=== PATIENT | male | born 1955 | race Caucasian/White ===

== ENCOUNTER 2017-03-27 16:15 | Emergency (ER) | payer OTHER ==
[2017-03-27 17:55] LABS: Urine Bacteria 1+ (Absent); Urine Bilirubin Negative (Negative); Urine Glucose Negative (Negative); Urine Nitrite Negative (Negative)
[2017-03-27 18:47] VITALS: BP 127/71
--- NOTE | 2017-03-28 11:52 | ED ---
Bryon Zuluaga Nikita, scribed for Jesse Bueno MD on 03/27/17 at 1837 . GI/ HPI - HPI Summary HPI Summary: Pt is a 62 y/o M who presents to ED c/o dysuria and urinary frequency and urgency. Sx began approximately 2 days ago with the associated pain when urinating being ranked 8/10. Sx aggravated and alleviated by nothing. Additionally c/o myalgias and fatigue secondary to waking up often due to urinary urgency. - History of Current Complaint Chief Complaint: EDUrogenitalProblems Time Seen by Provider: 03/27/17 18:31 Stated Complaint: POSS UTI Hx Obtained From: Patient Onset/Duration: Started Days Ago - 2 days, Still Present Current Severity: Severe Pain Intensity: 8 Pain Characteristics: Burning - When urinating Associated Signs and Symptoms: Positive: Dysuria Aggravating Factor(s): Nothing Alleviating Factor(s): Nothing - Allergy/Home Medications Allergies/Adverse Reactions: Allergies Allergy/AdvReac Type Severity Reaction Status Date / Time No Known Allergies Allergy Verified 03/27/17 16:30 PMH/Surg Hx/FS Hx/Imm Hx Previously Healthy: Yes Endocrine/Hematology History: Denies: Hx Diabetes Cardiovascular History: Denies: Hx Coronary Artery Disease, Hx Hypertension Infectious Disease History: Denies: Traveled Outside the [place] in Last 30 Days - Family History Known Family History: Negative: Cardiac Disease, Hypertension, Diabetes - Social History Lives: With Family Substance Use Type: Reports: None Smoking Status (MU): Never Smoked Tobacco Review of Systems Positive: Fatigue Positive: dysuria, frequency, urgency Positive: Myalgia All Other Systems Reviewed And Are Negative: Yes Physical Exam Triage Information Reviewed: Yes Vital Signs On Initial Exam: Initial Vitals Temp Pulse Resp BP Pulse Ox 98.6 F 73 16 132/79 97 03/27/17 16:31 03/27/17 16:31 03/27/17 16:31 03/27/17 16:31 03/27/17 16:31 Vital Signs Reviewed: Yes Appearance: Positive: Well-Appearing, No Pain Distress Skin: Positive: Warm, Skin Color Reflects Adequate Perfusion, Dry Head/Face: Positive: Normal Head/Face Inspection Eyes: Positive: Normal ENT: Positive: Normal ENT inspection Neck: Positive: Supple, Nontender Respiratory/Lung Sounds: Positive: Clear to Auscultation, Breath Sounds Present Cardiovascular: Positive: RRR Abdomen Description: Positive: Nontender, Soft Bowel Sounds: Positive: Present Musculoskeletal: Positive: Normal Neurological: Positive: Normal Psychiatric: Positive: Normal, Affect/Mood Appropriate Diagnostics - Vital Signs Vital Signs Temp Pulse Resp BP Pulse Ox 03/27/17 16:31 98.6 F 73 16 132/79 97 - Laboratory Lab Results: Lab Results 03/27/17 Range/Units 17:35 Urine Color Yellow Urine Appearance Clear Urine pH 5.0 (5-9) Ur Specific [place] 1.020 (1.010-1.030) Urine Protein Negative (Negative) Urine Ketones Trace H (Negative) Urine Blood Negative (Negative) Urine Nitrate Negative (Negative) Urine Bilirubin Negative (Negative) Urine Urobilinogen Negative (Negative) Ur Leukocyte Esterase 1+ H (Negative) Urine WBC (Auto) 2+(11-20/hpf) H (Absent) Urine RBC (Auto) 2+(6-10/hpf) H (Absent) Ur Squamous Epith Cells Present H (Absent) Urine Bacteria 1+ H (Absent) Urine Glucose Negative (Negative) Urine Ascorbic Acid * H (Negative) Lab Statement: Any lab studies that have been ordered have been reviewed, and results considered in the medical decision making process. GIGU Course/Dx - Course Course Of Treatment: Mr. Pereira [resented with a C/O dysuria, frequency and urgency. His U/A suggested an infection and he was treated accordingly. He was warned that if he did not improve right away, he may need a prostate exam. He was not toxic in any way while here. - Diagnoses Provider Diagnoses: UTI (urinary tract infection) Discharge - Discharge Plan Condition: Stable Disposition: HOME Prescriptions: Ciprofloxacin TAB* [Cipro Tab*] 500 mg PO BID #20 tab Phenazopyridine 200 mg (NF) [Pyridium 200 MG tab *] 200 mg PO TID #9 tab Patient Education Materials: Urinary Tract Infection in Men (ED) Referrals: Non Staff,Doctor [Primary Care Provider] - (Follow up with your primary care physician once you are back in town. ) The documentation as recorded by the Bryon foley Nikita accurately reflects the service I personally performed and the decisions made by me, Jesse Bueno MD.
== END 2017-03-27 18:57 | disposition home or self-care (01) ==
LOC: ED 16:15
DX: N39.0 Urinary tract infection, site not specified (principal); R30.0 Dysuria; R53.83 Other fatigue; M79.1 Myalgia
CPT/HCPCS: 81003; 81015; 87077; 87086; 87186; 99282